=== PATIENT | male | born 1985 | race American Indian/Alaskan Native ===

== ENCOUNTER 2019-10-16 22:26 | Inpatient (IN) | payer SELFPAY ==
[2019-10-16] MEDS ORDERED: IPRATROPIUM 0.02% NEBU 2.5 ML IH ONE ×4 (22:57→23:04)
[2019-10-16] MEDS ORDERED: ALBUTEROL 2.5 MG/3 ML NEBU IH ONE ×4 (22:57→23:04)
[2019-10-16] MEDS ORDERED: dexAMETHasone 20 MG/5 ML VIAL IV ONE (23:04)
[2019-10-16] MEDS ORDERED: MAGNESIUM SULFATE 1 GM in SODIUM CHLORIDE 0.9% 50 ML IV ONE (23:05)
[2019-10-16] MEDS ORDERED: SODIUM CHLORIDE 0.9% 1000 ML 1,000 ML IV ONE (23:05)
[2019-10-16] MEDS: cefTRIAXone/NS 2 GM/100 ML 2 GM/100 ML BAG IV SCH (23:22)
[2019-10-16 23:45] LABS: Hematocrit 47.3 % (35.5-45.6); Hemoglobin 15.8 gm/dl (11.8-15.2); Mean Corpuscular HGB Conc 34 % (32-34); Mean Corpuscular Volume 83 fl (84-94); Red Blood Count 5.68 M/mm3 (3.65-5.03); Red Cell Distribution Width 15.9 % (13.2-15.2)
--- NOTE | 2019-10-16 23:45 | XRay Report ---
CHEST 1 VIEW INDICATION: asthma with fever COMPARISON: none FINDINGS: SUPPORT DEVICES: None. HEART / MEDIASTINUM: No significant abnormality. LUNGS / PLEURA: No significant pulmonary or pleural abnormality. No pneumothorax. ADDITIONAL FINDINGS: IMPRESSION: 1. No acute cardiopulmonary disease Signer Name: Gurdeep Zuñiga MD Signed: 10/16/2019 11:40 PM Workstation Name: [id number]
[2019-10-16 23:49] LABS: Platelet Count 178 K/mm3 (140-440)
[2019-10-17 00:06] LABS: Alanine Aminotransferase 40 units/L (7-56); Albumin 4.1 g/dL (3.9-5); BUN/Creatinine Ratio 12; Blood Urea Nitrogen 11 mg/dL (9-20); Calcium 9.5 mg/dL (8.4-10.2); Hemolysis Index 5
--- NOTE | 2019-10-17 00:22 | Emergency Department Report ---
ED Asthma HPI - General Chief Complaint: Adult Asthma Stated Complaint: ASTHMA Time Seen by Provider: 10/16/19 23:04 Source: patient, EMS Mode of arrival: Ambulatory Limitations: No Limitations - History of Present Illness Initial Comments: Patient is a 34-year-old F Montene[place] male with a past medical history of asthma who does not have a inhaler at this time who is had a cough congestion wheezing with shortness of breath for the past 2 to 3 days. Patient denies fever at home but did have a simple slight temperature here. Cough is nonproductive. Patient states is very short of breath with minimal exertion. He denies nausea vomiting diarrhea. - Related Data Allergies Allergy/AdvReac Type Severity Reaction Status Date / Time No Known Drug Allergies Allergy Unknown Verified 10/16/19 23:13 ED Review of Systems ROS: Stated complaint: ASTHMA Other details as noted in HPI Comment: All other systems reviewed and negative ED Past Medical Hx - Past Medical History Previous Medical History?: Yes Hx Hypertension: Yes Hx Asthma: Yes Additional medical history: Bronchitis - Surgical History Past Surgical History?: No - Social History Smoking Status: Current Every Day Smoker Substance Use Type: Marijuana ED Physical Exam - General Limitations: No Limitations General appearance: alert, in no apparent distress - Head Head exam: Present: atraumatic, normocephalic - Eye Eye exam: Present: normal appearance - ENT ENT exam: Present: mucous membranes moist - Neck Neck exam: Present: normal inspection - Respiratory Respiratory exam: Present: respiratory distress, wheezes, accessory muscle use. Absent: normal lung sounds bilaterally, rales, rhonchi - Cardiovascular Cardiovascular Exam: Present: normal rhythm, tachycardia. Absent: systolic murmur, diastolic murmur, rubs, gallop - GI/Abdominal GI/Abdominal exam: Present: soft, normal bowel sounds. Absent: distended, tenderness, guarding, rebound - Rectal Rectal exam: Present: deferred - Extremities Exam Extremities exam: Present: normal inspection - Back Exam Back exam: Present: normal inspection - Neurological Exam Neurological exam: Present: alert, oriented X3 - Psychiatric Psychiatric exam: Present: normal affect, normal mood - Skin Skin exam: Present: warm, dry, intact, normal color. Absent: rash ED Course Vital Signs 10/16/19 10/16/19 10/16/19 22:53 23:08 23:30 Temperature 100.3 F H 99.3 F Pulse Rate 114 H 106 H Pulse Rate [ 112 H Bilateral Throughout] Respiratory 26 H 21 Rate Respiratory 17 Rate [Bilateral Throughout] Blood Pressure 139/90 Blood Pressure 132/85 [Left] O2 Sat by Pulse 96 97 Oximetry ED Medical Decision Making - Lab Data Result diagrams: 10/16/19 23:25 10/16/19 23:25 Lab Results 10/16/19 10/16/19 10/16/19 Range/Units 23:25 23:25 23:25 WBC 20.3 H (4.5-11.0) K/mm3 RBC 5.68 H (3.65-5.03) M/mm3 Hgb 15.8 H (11.8-15.2) gm/dl Hct 47.3 H (35.5-45.6) % MCV 83 L (84-94) fl MCH 28 (28-32) pg MCHC 34 (32-34) % RDW 15.9 H (13.2-15.2) % Plt Count 178 (140-440) K/mm3 Sodium 135 L (137-145) mmol/L Potassium 3.7 (3.6-5.0) mmol/L Chloride 99.7 (98-107) mmol/L Carbon Dioxide 21 L (22-30) mmol/L Anion Gap 18 mmol/L BUN 11 (9-20) mg/dL Creatinine 0.9 (0.8-1.3) mg/dL Estimated GFR > 60 ml/min BUN/Creatinine Ratio 12 % Glucose 106 H (75-100) mg/dL Lactic Acid 1.30 (0.7-2.0) mmol/L Calcium 9.5 (8.4-10.2) mg/dL Total Bilirubin 0.40 (0.1-1.2) mg/dL AST 26 (5-40) units/L ALT 40 (7-56) units/L Alkaline Phosphatase 96 (35-129) units/L Total Protein 8.5 H (6.3-8.2) g/dL Albumin 4.1 (3.9-5) g/dL Albumin/Globulin Ratio 0.9 % - Radiology Data Ordering Physician: BERNARDO WOODY MD Date of Service: 10/16/19 Procedure(s): XR chest 1V ap Accession Number(s): [id number] cc: BERNARDO WOODY MD Fluoro Time In Minutes: CHEST 1 VIEW INDICATION: asthma with fever COMPARISON: none FINDINGS: SUPPORT DEVICES: None. HEART / MEDIASTINUM: No significant abnormality. LUNGS / PLEURA: No significant pulmonary or pleural abnormality. No pneumotho rax. ADDITIONAL FINDINGS: IMPRESSION: 1. No acute cardiopulmonary disease Signer Name: Gurdeep Zuñiga MD Signed: 10/16/2019 11:40 PM Workstation Name: [id number] - Medical Decision Making After hour-long neb treatment the patient is continued to have loud wheezing. Patient will be admitted to the hospitalist service for further evaluation. Critical Care Time: Yes Critical care attestation.: If time is entered above; I have spent that time in minutes in the direct care of this critically ill patient, excluding procedure time. ED Disposition Clinical Impression: Asthma exacerbation, Acute respiratory distress, Suspected 2019 novel coronavirus infection Disposition: OP ADMIT IP TO THIS HOSP Is pt being admited?: Yes Does the pt Need Aspirin: No Condition: Stable Time of Disposition: 00:24
[2019-10-17] MEDS ORDERED: ACETAMINOPHEN 325 MG TAB PO PRN (00:43)
[2019-10-17] MEDS ORDERED: ONDANSETRON 4 MG/2 ML INJ IV PRN (00:43)
[2019-10-17] MEDS ORDERED: MAGNESIUM HYDROXIDE (MOM) ORAL LIQD UDC PO PRN (00:43)
[2019-10-17] MEDS ORDERED: MORPHINE 2 MG/1 ML INJ IV PRN (00:43)
--- NOTE | 2019-10-17 00:54 | History and Physical Report ---
History of Present Illness Date of examination: 10/17/19 Date of admission: 10/17/2019 Chief complaint: Cough Congestion Wheezing History of present illness: Patient is a 34-year-old -[place] male with known history of asthma presenting to the emergency room today complaining of cough,congestion, wheezing and shortness of breath which has been ongoing for the past 2 to 3 days. He denies any fever or chills at home however he has been having a nonproductive cough. He also indicates that he gets short of breath on minimal exertion. He denies any nausea or vomiting, no abdominal pain, no chest pain. Patient denies any sick contacts and no recent travel. No contact with anyone with COVID-19 Upon arrival in the emergency room he was found to be in respiratory distress, wheezing and had a fever of about 103 F. Work-up reveals leukocytosis of about 20,000, chest x-ray was unremarkable. Patient received nebulizer treatments and IV steroids. In view of the fever, patient is also being ruled out for COVID-19. He is therefore being placed on isolation precautions. Past History Past Medical History: other (Asthma) Past Surgical History: No surgical history Social history: smoking (Current daily smoker- 1 pack per day.), other (Uses Marijuana) Family history: no significant family history Medications and Allergies Allergies Allergy/AdvReac Type Severity Reaction Status Date / Time No Known Drug Allergies Allergy Unknown Verified 10/16/19 23:13 Active Meds: Active Medications Acetaminophen (Tylenol) 650 mg PO Q4H PRN PRN Reason: Pain MILD(1-3)/Fever >100.5/HERRERA Ceftriaxone Sodium (Rocephin/Ns 2 Gm/100 Ml) 2 gm in 100 mls @ 200 mls/hr IV Q24HR JOEL; Protocol Last Admin: 10/16/19 23:22 Dose: 200 mls/hr Documented by: Ondansetron HCl (Zofran) 4 mg IV Q8H PRN PRN Reason: Nausea And Vomiting Sodium Chloride (Sodium Chloride Flush Syringe 10 Ml) 10 ml IV BID JOEL Sodium Chloride (Sodium Chloride Flush Syringe 10 Ml) 10 ml IV PRN PRN PRN Reason: LINE FLUSH Review of Systems Constitutional: no fever, no chills Ears, nose, mouth and throat: no nasal congestion, no sore throat Cardiovascular: no chest pain, no palpitations Respiratory: cough, shortness of breath, congestion, wheezing Gastrointestinal: no abdominal pain, no nausea, no vomiting, no diarrhea Genitourinary Male: no dysuria, no hematuria, no flank pain Musculoskeletal: no neck pain, no low back pain Integumentary: no rash, no pruritis Neurological: no headaches, no confusion Psychiatric: no anxiety, no depression Exam - Constitutional Vitals: Temp Pulse Resp BP Pulse Ox 99.3 F 100 H 25 H 153/80 99 10/16/19 23:30 10/17/19 00:30 10/17/19 00:30 10/17/19 00:30 10/17/19 00:30 General appearance: Present: mild distress, well-nourished, obese - EENT Eyes: Present: PERRL, EOM intact. Absent: scleral icterus ENT: hearing intact, clear oral mucosa, dentition normal - Neck Neck: Present: supple, normal ROM - Respiratory Respiratory effort: normal Respiratory: bilateral: wheezing - Cardiovascular Rhythm: regular Heart Sounds: Present: S1 & S2. Absent: gallop, systolic murmur, diastolic murmur, rub - Extremities Extremities: no ischemia, pulses intact, pulses symmetrical, No edema, normal temperature, normal color, Full ROM Peripheral Pulses: within normal limits - Abdominal General gastrointestinal: Present: soft, non-tender, non-distended, normal bowel sounds. Absent: mass - Integumentary Integumentary: Present: clear, warm, dry. Absent: rash - Musculoskeletal Musculoskeletal: strength equal bilaterally - Psychiatric Psychiatric: appropriate mood/affect, intact judgment & insight, memory intact, cooperative - Neurologic Neurologic: CNII-XII intact, no focal deficits, moves all extremities Results - Labs CBC & Chem 7: 10/16/19 23:25 10/16/19 23:25 Labs: Abnormal lab results 10/16/19 10/16/19 Range/Units 23:25 23:25 WBC 20.3 H (4.5-11.0) K/mm3 RBC 5.68 H (3.65-5.03) M/mm3 Hgb 15.8 H (11.8-15.2) gm/dl Hct 47.3 H (35.5-45.6) % MCV 83 L (84-94) fl RDW 15.9 H (13.2-15.2) % Sodium 135 L (137-145) mmol/L Carbon Dioxide 21 L (22-30) mmol/L Glucose 106 H (75-100) mg/dL Total Protein 8.5 H (6.3-8.2) g/dL Assessment and Plan - Patient Problems (1) Asthma exacerbation Current Visit: Yes Status: Acute Plan to address problem: Patient placed on nebulizing treatments and IV steroids. We will also keep oxygen saturation greater or equal to 94%. (2) Acute respiratory distress Current Visit: Yes Status: Acute Plan to address problem: Possibly secondary to the asthma exacerbation. We will continue nebulizing treatments as above. We will monitor vital signs closely (3) Suspected 2019 novel coronavirus infection Current Visit: Yes Status: Acute Plan to address problem: Patient placed on isolation precautions and will also place consult to infectious disease for evaluation and recommendation. Will await COVID-19 testing. (4) DVT prophylaxis Current Visit: Yes Status: Acute Plan to address problem: Patient placed on subcutaneous Lovenox. (5) Full code status Current Visit: Yes Status: Acute
[2019-10-17 02:57] LABS: C-Reactive Protein 6.3 mg/dL (0.00-1.30)
[2019-10-17 04:36] LABS: Basophils % (Manual) 0 % (0.0-1.8); Total Cells Counted 100
[2019-10-17 04:37] LABS: Platelet Clumps Few; Platelet Estimate Appears Decreased
[2019-10-17] MEDS: methylPREDNISolone Sod Succinate 40 MG/1 ML INJ IV SCH ×3 (06:08→21:10)
[2019-10-17] MEDS: IPRATROPIUM/ALBUTEROL SULFATE 3 ML AMPUL.NEB IH SCH ×4 (07:42→19:55)
--- NOTE | 2019-10-17 07:47 | Progress Note ---
<MANSI PICKARD - Last Filed: 10/17/19 07:49> Assessment and Plan Assessment and Plan - Patient Problems (1) Asthma exacerbation Current Visit: Yes Status: Acute Plan to address problem: Continue nebulizing treatments and IV steroids. Monitor 02 sat and keep oxygen saturation greater or equal to 94%. (2) Acute respiratory distress Current Visit: Yes Status: Acute Plan to address problem: Possibly secondary to the asthma exacerbation. We will continue nebulizing treatments as above. We will monitor vital signs closely (3) Suspected 2019 novel coronavirus infection Current Visit: Yes Status: Acute Plan to address problem: Patient placed on isolation precautions and will also place consult to infectious disease for evaluation and recommendation. Elevated inflammatory makers-trend awaiting COVID-19 test result (4) DVT prophylaxis Current Visit: Yes Status: Acute Plan to address problem: Patient placed on subcutaneous Lovenox. (5) Full code status Current Visit: Yes Status: Acute - Patient Problems (1) Leucocytosis Current Visit: Yes Status: Acute Plan to address problem: ? cause covid viral infection/asthma exacerbation with upper respiratory infection Continue empiric IV abx Blood culture and covid test-result pending Chest x-ray was done -no acute finding Elevated inflammatory maker-monitor Subjective Date of service: 10/17/19 Principal diagnosis: Asthma exacerbaton Interval history: Patient seen at bedside in his room. Reviewed lab, mar, and v/s Objective - Constitutional Vitals: Vital Signs - 12hr 10/16/19 10/16/19 10/16/19 22:53 23:08 23:30 Temperature 100.3 F H 99.3 F Pulse Rate 114 H 106 H Pulse Rate [ 112 H Bilateral Throughout] Respiratory 26 H 21 Rate Respiratory 17 Rate [Bilateral Throughout] Blood Pressure 139/90 Blood Pressure 132/85 [Left] O2 Sat by Pulse 96 97 Oximetry 10/16/19 10/17/19 10/17/19 23:45 00:00 00:15 Temperature Pulse Rate 103 H 106 H 105 H Pulse Rate [ Bilateral Throughout] Respiratory 21 20 28 H Rate Respiratory Rate [Bilateral Throughout] Blood Pressure 131/85 147/87 146/90 Blood Pressure [Left] O2 Sat by Pulse 99 99 97 Oximetry 10/17/19 10/17/19 10/17/19 00:30 00:46 01:16 Temperature 99.9 F H Pulse Rate 100 H 111 H 97 H Pulse Rate [ Bilateral Throughout] Respiratory 25 H 23 24 Rate Respiratory Rate [Bilateral Throughout] Blood Pressure 153/80 144/80 150/83 Blood Pressure [Left] O2 Sat by Pulse 99 96 97 Oximetry 10/17/19 10/17/19 10/17/19 01:45 02:00 02:45 Temperature Pulse Rate Pulse Rate [ Bilateral Throughout] Respiratory 21 21 19 Rate Respiratory Rate [Bilateral Throughout] Blood Pressure Blood Pressure [Left] O2 Sat by Pulse 97 Oximetry 10/17/19 04:05 Temperature 98.6 F Pulse Rate Pulse Rate [ Bilateral Throughout] Respiratory 24 Rate Respiratory Rate [Bilateral Throughout] Blood Pressure 142/87 Blood Pressure [Left] O2 Sat by Pulse Oximetry General appearance: Present: mild distress - EENT Eyes: PERRL, EOM intact ENT: hearing intact, clear oral mucosa Ears: bilateral: normal - Neck Neck: supple, normal ROM - Respiratory Respiratory effort: other (Wheezing and mild SOB) Respiratory: bilateral: wheezing - Breasts Breasts: normal - Cardiovascular Heart rate: 97 Rhythm: regular Heart Sounds: Present: S1 & S2. Absent: gallop, rub Extremities: pulses intact, No edema, normal color, Full ROM - Gastrointestinal General gastrointestinal: Present: soft, non-tender, non-distended, normal bowel sounds - Genitourinary Male genitourinary: normal - Integumentary Integumentary: clear, warm, dry - Musculoskeletal Musculoskeletal: 1, strength equal bilaterally - Neurologic Neurologic: moves all extremities - Psychiatric Psychiatric: memory intact, appropriate mood/affect, intact judgment & insight - Allied health notes Allied health notes reviewed: nursing - Labs CBC & Chem 7: 10/16/19 23:25 10/17/19 00:29 Labs: Abnormal lab results 10/16/19 10/16/19 10/17/19 Range/Units 23:25 23:25 00:29 WBC 20.3 H (4.5-11.0) K/mm3 RBC 5.68 H (3.65-5.03) M/mm3 Hgb 15.8 H (11.8-15.2) gm/dl Hct 47.3 H (35.5-45.6) % MCV 83 L (84-94) fl RDW 15.9 H (13.2-15.2) % Seg Neuts % (Manual) 84.0 H (40.0-70.0) % Lymphocytes % (Manual) 9.0 L (13.4-35.0) % Seg Neutrophils # Man 17.1 H (1.8-7.7) K/mm3 Monocytes # (Manual) 1.2 H (0.0-0.8) K/mm3 Sodium 135 L (137-145) mmol/L Carbon Dioxide 21 L (22-30) mmol/L Glucose 106 H 105 H (75-100) mg/dL Lactate Dehydrogenase 209 H (91-180) units/L C-Reactive Protein 6.30 H (0.00-1.30) mg/dL Total Protein 8.5 H (6.3-8.2) g/dL <LUKE GARCIA - Last Filed: 10/17/19 14:19> Assessment and Plan I agree with assessment and plan as noted above. Continue solumedrol 40 q8h for now Bronchodilators COVID 19 test pending Needs pulmonology follow up Objective - Constitutional Vitals: Vital Signs - 12hr 10/17/19 10/17/19 10/17/19 02:45 04:05 07:40 Temperature 98.6 F Pulse Rate Pulse Rate [ 96 H Bilateral Throughout] Respiratory 19 24 Rate Respiratory 24 Rate [Bilateral Throughout] Blood Pressure 142/87 O2 Sat by Pulse Oximetry 10/17/19 10/17/19 10/17/19 08:48 11:40 12:31 Temperature 98.3 F Pulse Rate 94 H Pulse Rate [ 96 H Bilateral Throughout] Respiratory 20 Rate Respiratory 22 Rate [Bilateral Throughout] Blood Pressure 154/90 O2 Sat by Pulse 96 96 Oximetry - Labs CBC & Chem 7: 10/16/19 23:25 10/17/19 00:29 Labs: Abnormal lab results 10/16/19 10/16/19 10/17/19 Range/Units 23:25 23:25 00:29 WBC 20.3 H (4.5-11.0) K/mm3 RBC 5.68 H (3.65-5.03) M/mm3 Hgb 15.8 H (11.8-15.2) gm/dl Hct 47.3 H (35.5-45.6) % MCV 83 L (84-94) fl RDW 15.9 H (13.2-15.2) % Seg Neuts % (Manual) 84.0 H (40.0-70.0) % Lymphocytes % (Manual) 9.0 L (13.4-35.0) % Seg Neutrophils # Man 17.1 H (1.8-7.7) K/mm3 Monocytes # (Manual) 1.2 H (0.0-0.8) K/mm3 Sodium 135 L (137-145) mmol/L Carbon Dioxide 21 L (22-30) mmol/L Glucose 106 H 105 H (75-100) mg/dL Lactate Dehydrogenase 209 H (91-180) units/L C-Reactive Protein 6.30 H (0.00-1.30) mg/dL Total Protein 8.5 H (6.3-8.2) g/dL
[2019-10-17] MEDS: cefTRIAXone/NS 2 GM/100 ML 2 GM/100 ML BAG IV SCH (09:40)
[2019-10-17] MEDS ORDERED: AZITHROMYCIN 500 MG in SODIUM CHLORIDE 0.9% 250ML 250 ML IV SCH (10:00)
[2019-10-17] MEDS: ENOXAPARIN 40 MG/0.4 ML INJ SUB-Q SCH (21:09)
[2019-10-18] MEDS: methylPREDNISolone Sod Succinate 40 MG/1 ML INJ IV SCH ×3 (06:38→21:12)
[2019-10-18 07:42] LABS: BUN/Creatinine Ratio 24; Blood Urea Nitrogen 19 mg/dL (9-20); Calcium 9.6 mg/dL (8.4-10.2); Hemolysis Index 4
[2019-10-18 07:43] LABS: INR 1.02 (0.87-1.13)
[2019-10-18 07:45] LABS: C-Reactive Protein 4.5 mg/dL (0.00-1.30)
[2019-10-18] MEDS: IPRATROPIUM/ALBUTEROL SULFATE 3 ML AMPUL.NEB IH SCH ×4 (07:49→20:22)
[2019-10-18 08:59] LABS: Hematocrit 46.8 % (35.5-45.6); Hemoglobin 15.5 gm/dl (11.8-15.2); Mean Corpuscular HGB Conc 33 % (32-34); Mean Corpuscular Volume 86 fl (84-94); Red Blood Count 5.47 M/mm3 (3.65-5.03); Red Cell Distribution Width 16.2 % (13.2-15.2)
[2019-10-18 09:01] LABS: Platelet Count 204 K/mm3 (140-440)
[2019-10-18 09:52] LABS: Band Neutrophils # (Manual) 0.3 K/mm3; Basophils % (Manual) 0 % (0.0-1.8); Eosinophils % (Manual) 0 % (0.0-4.3); Total Cells Counted 100
[2019-10-18] MEDS: AZITHROMYCIN 250 MG TAB PO SCH (09:53)
[2019-10-18] MEDS: cefTRIAXone/NS 2 GM/100 ML 2 GM/100 ML BAG IV SCH (09:53)
[2019-10-18 09:54] LABS: Giant Platelets Few; Platelet Clumps 1+; RBC Morphology Normal
[2019-10-18 09:55] LABS: Platelet Estimate Appears Increased
--- NOTE | 2019-10-18 11:02 | Progress Note ---
<PRIMOMARUMILLYWARRENMANSI - Last Filed: 10/18/19 10:57> Assessment and Plan Assessment and Plan - Patient Problems (1) Asthma exacerbation-improving Current Visit: Yes Status: Acute Plan to address problem: Continue nebulizing treatments and IV steroids. Monitor 02 sat and keep oxygen saturation greater or equal to 94%. On oxygen at 2 liters N/C (2) Acute respiratory distress-improving Current Visit: Yes Status: Acute Plan to address problem: Possibly secondary to the asthma exacerbation. We will continue nebulizing treatments as above. Picking Table Worker consulted-f/u with recommendation (3) Suspected 2019 novel coronavirus infection-negative Current Visit: Yes Status: Acute Plan to address problem: covid test negative (4) DVT prophylaxis Current Visit: Yes Status: Acute Plan to address problem: Patient placed on subcutaneous Lovenox. (5) Full code status Current Visit: Yes Status: Acute - Patient Problems (1) Leucocytosis Current Visit: Yes Status: Acute Plan to address problem: ? cause covid viral infection/asthma exacerbation with upper respiratory infection Continue empiric IV abx Blood culture and covid test-negative Chest x-ray was done -no acute finding procalcitonin-negative ID consulted -f/u with recommendation (2) Tobacco abuse Current Visit: Yes Status: Acute Plan to address problem: Discussed tobacco use cessation cardiovascular and neoplasm syndrom of tobacco use explained to patient patient voiced understanding Subjective Date of service: 10/18/19 Principal diagnosis: Asthma exacerbaton Interval history: Patient seen at bedside in his room. Reviewed lab, mar, and v/s patient wheezing on auscultation he denies chest pain, n/v, on oxygen at 2 liters N/C But reports that is feeling better. Elevated leucocytosis to 34 Chest x-ray shows no acute finding Covid test negative, procalciton negative Consulted plumber's helper for acute asthma exacerbation ID also consulted -pts elevated wBC Objective - Constitutional Vitals: Vital Signs - 12hr 10/18/19 10/18/19 02:00 05:38 Temperature 98.3 F Pulse Rate 79 Respiratory 20 22 Rate Blood Pressure 138/77 O2 Sat by Pulse 95 94 Oximetry General appearance: Present: mild distress (pt on oxygen at 2 N/C), well- nourished - EENT Eyes: PERRL, EOM intact ENT: hearing intact, clear oral mucosa Ears: bilateral: normal - Neck Neck: supple, normal ROM - Respiratory Respiratory effort: other (Wheezing on auscultation-mildly improving) Respiratory: bilateral: wheezing - Breasts Breasts: normal - Cardiovascular Heart rate: 79 Rhythm: regular Heart Sounds: Present: S1 & S2. Absent: gallop, rub Extremities: pulses intact, No edema, normal color, Full ROM - Gastrointestinal General gastrointestinal: Present: soft, non-tender, non-distended, normal bowel sounds - Genitourinary Male genitourinary: normal - Integumentary Integumentary: clear, warm, dry - Musculoskeletal Musculoskeletal: 1, strength equal bilaterally - Neurologic Neurologic: moves all extremities - Psychiatric Psychiatric: memory intact, appropriate mood/affect, intact judgment & insight - Labs CBC & Chem 7: 10/18/19 06:56 10/18/19 06:56 Labs: Abnormal lab results 10/18/19 10/18/19 10/18/19 Range/Units 06:56 06:56 06:56 WBC 32.4 H (4.5-11.0) K/mm3 RBC 5.47 H (3.65-5.03) M/mm3 Hgb 15.5 H (11.8-15.2) gm/dl Hct 46.8 H (35.5-45.6) % RDW 16.2 H (13.2-15.2) % Seg Neuts % (Manual) 84.0 H (40.0-70.0) % Lymphocytes % (Manual) 10.0 L (13.4-35.0) % Seg Neutrophils # Man 27.2 H (1.8-7.7) K/mm3 Monocytes # (Manual) 1.6 H (0.0-0.8) K/mm3 Glucose 111 H (75-100) mg/dL Lactate Dehydrogenase 221 H (91-180) units/L C-Reactive Protein 4.50 H (0.00-1.30) mg/dL <ANSHU MONTES - Last Filed: 10/19/19 07:39> Assessment and Plan I saw and evaluated the patient. I agree with the findings and the plan of care as documented in the Nurse Practitioner's~note, with the following corrections and additions. Objective - Constitutional Vitals: Vital Signs - 12hr 10/18/19 10/18/19 10/18/19 20:15 21:06 22:08 Temperature 97.5 F L Pulse Rate 89 Pulse Rate [ 98 H Bilateral Throughout] Respiratory 20 Rate Respiratory 18 Rate [Bilateral Throughout] Blood Pressure 136/88 O2 Sat by Pulse 98 97 Oximetry 10/18/19 10/19/19 10/19/19 22:51 01:45 05:58 Temperature 97.8 F Pulse Rate 95 H Pulse Rate [ 84 Bilateral Throughout] Respiratory 20 20 Rate Respiratory 18 Rate [Bilateral Throughout] Blood Pressure 135/80 O2 Sat by Pulse 95 93 Oximetry - Labs CBC & Chem 7: 10/19/19 05:03 10/18/19 06:56 Labs: Abnormal lab results 10/18/19 10/18/19 10/18/19 Range/Units 06:56 06:56 06:56 WBC 32.4 H (4.5-11.0) K/mm3 RBC 5.47 H (3.65-5.03) M/mm3 Hgb 15.5 H (11.8-15.2) gm/dl Hct 46.8 H (35.5-45.6) % RDW 16.2 H (13.2-15.2) % Seg Neuts % (Manual) 84.0 H (40.0-70.0) % Lymphocytes % (Manual) 10.0 L (13.4-35.0) % Seg Neutrophils # Man 27.2 H (1.8-7.7) K/mm3 Monocytes # (Manual) 1.6 H (0.0-0.8) K/mm3 Glucose 111 H (75-100) mg/dL Lactate Dehydrogenase 221 H (91-180) units/L C-Reactive Protein 4.50 H (0.00-1.30) mg/dL 10/19/19 Range/Units 05:03 WBC 24.8 H (4.5-11.0) K/mm3 RBC 5.50 H (3.65-5.03) M/mm3 Hgb 15.4 H (11.8-15.2) gm/dl Hct 46.9 H (35.5-45.6) % RDW 16.4 H (13.2-15.2) % Seg Neuts % (Manual) (40.0-70.0) % Lymphocytes % (Manual) (13.4-35.0) % Seg Neutrophils # Man (1.8-7.7) K/mm3 Monocytes # (Manual) (0.0-0.8) K/mm3 Glucose (75-100) mg/dL Lactate Dehydrogenase (91-180) units/L C-Reactive Protein (0.00-1.30) mg/dL
[2019-10-18] MEDS: guaiFENesin DM 200/20 MG ORAL LIQD 10 ML PO PRN ×3 (12:56→19:49)
--- NOTE | 2019-10-18 16:21 | Consultation ---
History of Present Illness Consult date: 10/18/19 Past History Past Medical History: other (Asthma) Past Surgical History: No surgical history Social history: smoking (Current daily smoker- 1 pack per day.), other (Uses Marijuana) Family history: no significant family history Medications and Allergies Allergies Allergy/AdvReac Type Severity Reaction Status Date / Time No Known Drug Allergies Allergy Unknown Verified 10/16/19 23:13 Home Medications Medication Instructions Recorded Confirmed Last Taken Type Albuterol Mdi (or & Nicu Only) 2 puff IH QID PRN #8.5 gram 10/18/19 Unknown Rx [ProAir HFA Inhaler] Azithromycin [Zithromax TAB] 500 mg PO QDAY #6 tablet 10/18/19 Unknown Rx Prednisone [predniSONE 5 mg (6-Day 5 mg PO .TAPER #1 tab.ds.pk 10/18/19 Unknown Rx Pack, 21 Tabs)] Active Meds: Active Medications Acetaminophen (Tylenol) 650 mg PO Q4H PRN PRN Reason: Pain MILD(1-3)/Fever >100.5/HERRERA Last Admin: 10/17/19 01:45 Dose: 650 mg Documented by: Albuterol/Ipratropium (Duoneb *Not For Prn Use*) 1 ampul IH Q6HRT [facility] Azithromycin (Zithromax) 500 mg PO QDAY [facility] Stop: 10/21/19 10:01 Last Admin: 10/18/19 09:53 Dose: 500 mg Documented by: Enoxaparin Sodium (Enoxaparin) 40 mg SUB-Q QDAY@2200 JOEL Last Admin: 10/17/19 21:09 Dose: 40 mg Documented by: Guaifenesin (Guaifenesin Dm Syrup) 10 ml PO Q4H PRN PRN Reason: Cough Last Admin: 10/18/19 15:45 Dose: 10 ml Documented by: Ceftriaxone Sodium (Rocephin/Ns 2 Gm/100 Ml) 2 gm in 100 mls @ 200 mls/hr IV Q24HR [facility]; Protocol Last Infusion: 10/18/19 10:30 Dose: Infused Documented by: Magnesium Hydroxide (Milk Of Magnesia) 30 ml PO Q4H PRN PRN Reason: Constipation Methylprednisolone Sodium Succinate (Solu-Medrol) 40 mg IV Q8HR [facility] Last Admin: 09/06/20 14:09 Dose: 40 mg Documented by: Morphine Sulfate (Morphine) 2 mg IV Q4H PRN PRN Reason: Pain, Moderate (4-6) Ondansetron HCl (Zofran) 4 mg IV Q8H PRN PRN Reason: Nausea And Vomiting Sodium Chloride (Sodium Chloride Flush Syringe 10 Ml) 10 ml IV BID JOEL Last Admin: 10/18/19 10:30 Dose: 10 ml Documented by: Sodium Chloride (Sodium Chloride Flush Syringe 10 Ml) 10 ml IV PRN PRN PRN Reason: LINE FLUSH Review of Systems All systems: negative Physical Examination Vital signs: Vital Signs Temp Pulse Resp BP Pulse Ox 100.3 F H 114 H 26 H 139/90 96 10/16/19 22:53 10/16/19 22:53 10/16/19 22:53 10/16/19 22:53 10/16/19 22:53 Results - Laboratory Findings CBC and BMP: 10/18/19 06:56 10/18/19 06:56 PT/INR, D-dimer PT 13.6 Sec. (12.2-14.9) 10/18/19 06:56 INR 1.02 (0.87-1.13) 10/18/19 06:56 D-Dimer < 135.00 ng/mlDDU (0-234) 10/17/19 08:53 Abnormal lab findings: Abnormal Labs 10/16/19 10/16/19 10/17/19 23:25 23:25 00:29 WBC 20.3 H RBC 5.68 H Hgb 15.8 H Hct 47.3 H MCV 83 L RDW 15.9 H Seg Neuts % (Manual) 84.0 H Lymphocytes % (Manual) 9.0 L Seg Neutrophils # Man 17.1 H Monocytes # (Manual) 1.2 H Sodium 135 L Carbon Dioxide 21 L Glucose 106 H 105 H Lactate Dehydrogenase 209 H C-Reactive Protein 6.30 H Total Protein 8.5 H 10/18/19 10/18/19 10/18/19 06:56 06:56 06:56 WBC 32.4 H RBC 5.47 H Hgb 15.5 H Hct 46.8 H MCV RDW 16.2 H Seg Neuts % (Manual) 84.0 H Lymphocytes % (Manual) 10.0 L Seg Neutrophils # Man 27.2 H Monocytes # (Manual) 1.6 H Sodium Carbon Dioxide Glucose 111 H Lactate Dehydrogenase 221 H C-Reactive Protein 4.50 H Total Protein - Diagnostic Findings Chest x-ray: report reviewed, image reviewed Additional studies: CHEST 1 VIEW 10/16/19 INDICATION: asthma with fever COMPARISON: none FINDINGS: SUPPORT DEVICES: None. HEART / MEDIASTINUM: No significant abnormality. LUNGS / PLEURA: No significant pulmonary or pleural abnormality. No pneumothorax. ADDITIONAL FINDINGS: IMPRESSION: 1. No acute cardiopulmonary disease Assessment and Plan - Patient Problems (1) Acute respiratory distress Current Visit: Yes Status: Acute (2) Asthma exacerbation Current Visit: Yes Status: Acute (3) Suspected 2019 novel coronavirus infection Current Visit: Yes Status: Acute (4) Tobacco abuse Current Visit: Yes Status: Acute
--- NOTE | 2019-10-18 17:14 | Consultation ---
History of Present Illness Consult date: 10/18/19 Reason for consult: cough, asthma History of present illness: Patient is a 34-year-old -[place] male Morbidly Obese with known history of asthma presenting to the emergency room today complaining of cough,congestion, wheezing and shortness of breath which has been ongoing for the past 2 to 3 days. He denies any fever or chills at home however he has been having a nonproductive cough. He also indicates that he gets short of breath on minimal exertion. He denies any nausea or vomiting, no abdominal pain, no chest pain. Patient denies any sick contacts and no recent travel. No contact with anyone with COVID-19 Upon arrival in the emergency room he was found to be in respiratory distress, wheezing and had a fever of about 103 F. Work-up reveals leukocytosis of about 20,000, chest x-ray was unremarkable. Patient received nebulizer treatments and IV steroids. Patient is on 2 litres o2. O2 saturation 95%. Patient afebrile. Has leukocytosis. Patient having cough. Patient says breathing better. Patient has history of smoking 1 pack x 20 years. Counselled to stop smoking. also smokes mariluna. Denies alcohol abuse. 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 No known drug allergies. Past History Past Medical History: other (Asthma) Past Surgical History: No surgical history Social history: smoking (Current daily smoker- 1 pack per day.), other (Uses Marijuana) Family history: no significant family history Medications and Allergies Allergies Allergy/AdvReac Type Severity Reaction Status Date / Time No Known Drug Allergies Allergy Unknown Verified 10/16/19 23:13 Home Medications Medication Instructions Recorded Confirmed Last Taken Type Albuterol Mdi (or & Nicu Only) 2 puff IH QID PRN #8.5 gram 10/18/19 Unknown Rx [ProAir HFA Inhaler] Azithromycin [Zithromax TAB] 500 mg PO QDAY #6 tablet 10/18/19 Unknown Rx Prednisone [predniSONE 5 mg (6-Day 5 mg PO .TAPER #1 tab.ds.pk 10/18/19 Unknown Rx Pack, 21 Tabs)] Active Meds: Active Medications Acetaminophen (Tylenol) 650 mg PO Q4H PRN PRN Reason: Pain MILD(1-3)/Fever >100.5/HERRERA Last Admin: 10/17/19 01:45 Dose: 650 mg Documented by: Albuterol/Ipratropium (Duoneb *Not For Prn Use*) 1 ampul IH Q6HRT [facility] Azithromycin (Zithromax) 500 mg PO QDAY [facility] Stop: 10/21/19 10:01 Last Admin: 10/18/19 09:53 Dose: 500 mg Documented by: Enoxaparin Sodium (Enoxaparin) 40 mg SUB-Q QDAY@2200 [facility] Last Admin: 10/17/19 21:09 Dose: 40 mg Documented by: Guaifenesin (Guaifenesin Dm Syrup) 10 ml PO Q4H PRN PRN Reason: Cough Last Admin: 10/18/19 15:45 Dose: 10 ml Documented by: Ceftriaxone Sodium (Rocephin/Ns 2 Gm/100 Ml) 2 gm in 100 mls @ 200 mls/hr IV Q24HR [facility]; Protocol Last Infusion: 10/18/19 10:30 Dose: Infused Documented by: Magnesium Hydroxide (Milk Of Magnesia) 30 ml PO Q4H PRN PRN Reason: Constipation Methylprednisolone Sodium Succinate (Solu-Medrol) 40 mg IV Q8HR [facility] Last Admin: 10/18/19 14:09 Dose: 40 mg Documented by: Morphine Sulfate (Morphine) 2 mg IV Q4H PRN PRN Reason: Pain, Moderate (4-6) Ondansetron HCl (Zofran) 4 mg IV Q8H PRN PRN Reason: Nausea And Vomiting Sodium Chloride (Sodium Chloride Flush Syringe 10 Ml) 10 ml IV BID [facility] Last Admin: 10/18/19 10:30 Dose: 10 ml Documented by: Sodium Chloride (Sodium Chloride Flush Syringe 10 Ml) 10 ml IV PRN PRN PRN Reason: LINE FLUSH Review of Systems All systems: negative Physical Examination Vital signs: Vital Signs Temp Pulse Resp BP Pulse Ox 100.3 F H 114 H 26 H 139/90 96 10/16/19 22:53 10/16/19 22:53 10/16/19 22:53 10/16/19 22:53 10/16/19 22:53 General appearance: no acute distress, alert, other (Morbidley Obese.) Eyes: non-icteric ENT: oropharynx moist Neck: supple Ascultation: Bilateral: rhonchi Cardiovascular: regular rate and rhythm Gastrointestinal: normoactive bowel sounds, soft, non-tender Integumentary: normal Extremities: no cyanosis, no edema Musculoskeletal: no deformities normal mental status, non-focal exam, pupils equal and round, CN II-XII normal anxious Results - Laboratory Findings CBC and BMP: 10/18/19 06:56 10/18/19 06:56 PT/INR, D-dimer PT 13.6 Sec. (12.2-14.9) 10/18/19 06:56 INR 1.02 (0.87-1.13) 10/18/19 06:56 D-Dimer < 135.00 ng/mlDDU (0-234) 10/17/19 08:53 Abnormal lab findings: Abnormal Labs 10/16/19 10/16/19 10/17/19 23:25 23:25 00:29 WBC 20.3 H RBC 5.68 H Hgb 15.8 H Hct 47.3 H MCV 83 L RDW 15.9 H Seg Neuts % (Manual) 84.0 H Lymphocytes % (Manual) 9.0 L Seg Neutrophils # Man 17.1 H Monocytes # (Manual) 1.2 H Sodium 135 L Carbon Dioxide 21 L Glucose 106 H 105 H Lactate Dehydrogenase 209 H C-Reactive Protein 6.30 H Total Protein 8.5 H 10/18/19 10/18/19 10/18/19 06:56 06:56 06:56 WBC 32.4 H RBC 5.47 H Hgb 15.5 H Hct 46.8 H MCV RDW 16.2 H Seg Neuts % (Manual) 84.0 H Lymphocytes % (Manual) 10.0 L Seg Neutrophils # Man 27.2 H Monocytes # (Manual) 1.6 H Sodium Carbon Dioxide Glucose 111 H Lactate Dehydrogenase 221 H C-Reactive Protein 4.50 H Total Protein - Diagnostic Findings Chest x-ray: report reviewed, image reviewed Additional studies: CHEST 1 VIEW 10/16/19 INDICATION: asthma with fever COMPARISON: none FINDINGS: SUPPORT DEVICES: None. HEART / MEDIASTINUM: No significant abnormality. LUNGS / PLEURA: No significant pulmonary or pleural abnormality. No pne umothorax. ADDITIONAL FINDINGS: IMPRESSION: 1. No acute cardiopulmonary disease Assessment and Plan Patient is a 34-year-old -[place] male Morbidly Obese with known history of asthma presenting to the emergency room today complaining of cough,congestion, wheezing and shortness of breath which has been ongoing for the past 2 to 3 days. He denies any fever or chills at home however he has been having a nonproductive cough. He also indicates that he gets short of breath on minimal exertion. He denies any nausea or vomiting, no abdominal pain, no chest pain. Patient denies any sick contacts and no recent travel. No contact with anyone with COVID-19 Upon arrival in the emergency room he was found to be in respiratory distress, wheezing and had a fever of about 103 F. Work-up reveals leukocytosis of about 20,000, chest x-ray was unremarkable. Patient received nebulizer treatments and IV steroids. Patient is on 2 litres o2. O2 saturation 95%. Patient afebrile. Has leukocytosis. Patient having cough. Patient says breathing better. Patient has history of smoking 1 pack x 20 years. Counselled to stop smoking. also smokes mariluna. Denies alcohol abuse. 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 No known drug allergies. - Patient Problems (1) Acute respiratory distress Current Visit: Yes Status: Acute Plan to address problem: Patient says breathing better now. O2 saturation 95% on 2 litres O2. (2) Asthma exacerbation Current Visit: Yes Status: Acute Plan to address problem: O2 2 litres via nasal canula. Albuterol/atrovent aerosol treatments q 6 hours. Continue I/V solumedrol Continue ceftrioxane and zithromax. Continue S/C Lovenox. ABGs on room air. (3) Suspected 2019 novel coronavirus infection Current Visit: Yes Status: Acute Plan to address problem: COVID 19 reported negative. (4) Tobacco abuse Current Visit: Yes Status: Acute Plan to address problem: Counseled to stop smoking. Counseled to stop smoking Noan
--- NOTE | 2019-10-18 17:28 | Progress Note ---
Subjective Date of service: 10/18/19 Principal diagnosis: Asthma exacerbaton Objective - Constitutional Vitals: Vital Signs Temp Pulse Resp BP Pulse Ox 97.8 F 97 H 20 148/79 95 10/18/19 16:07 10/18/19 16:07 10/18/19 16:07 10/18/19 16:07 10/18/19 16:07 Temperature -Last 24 Hours Temperature 97.8 F Temperature 97.7 F Temperature 98.3 F Temperature 98.2 F - Labs CBC & Chem 7: 10/18/19 06:56 10/18/19 06:56 Labs: Abnormal lab results 10/18/19 10/18/19 10/18/19 Range/Units 06:56 06:56 06:56 WBC 32.4 H (4.5-11.0) K/mm3 RBC 5.47 H (3.65-5.03) M/mm3 Hgb 15.5 H (11.8-15.2) gm/dl Hct 46.8 H (35.5-45.6) % RDW 16.2 H (13.2-15.2) % Seg Neuts % (Manual) 84.0 H (40.0-70.0) % Lymphocytes % (Manual) 10.0 L (13.4-35.0) % Seg Neutrophils # Man 27.2 H (1.8-7.7) K/mm3 Monocytes # (Manual) 1.6 H (0.0-0.8) K/mm3 Glucose 111 H (75-100) mg/dL Lactate Dehydrogenase 221 H (91-180) units/L C-Reactive Protein 4.50 H (0.00-1.30) mg/dL
--- NOTE | 2019-10-18 17:35 | Consultation ---
History of Present Illness - Reason for Consult Consult date: 10/18/19 - History of Present Illness 34-year-old man past medical history asthma admitted to the hospital complaining of cough, congestion, wheezing, shortness of breath. He notes symptoms began approximately 2 to 3 days prior to admission. He otherwise denies any fevers, sweats, chills. His symptoms are associated with a nonproductive cough. He otherwise denies any symptoms. He denies any recent contacts with anybody diag nosed with COVID-19. Afebrile with a white count of 32. COVID-19 testing negative. Currently on c eftriaxone, azithromycin, Solu-Medrol. Blood cultures currently pending. Procalcitonin is normal. On 2 L nasal cannula. Imaging personally reviewed: Chest x-ray: No acute abnormality. Review of Systems: Bold if positive, otherwise negative General: fevers, chills, rigors HEENT: visual disturbance, diplopia, eye pain Respiratory: cough, sputum, hemoptysis, shortness of breath Cardiovascular: chest pain, syncope Gastrointestinal: nausea, vomiting, diarrhea, abdominal pain Genitourinary: dysuria, hematuria, flank pain Musculoskeletal: neck pain, back pain, joint pain, edema Neurologic: headaches, seizures Hematologic: easy bruising or bleeding Endocrine: night sweats, acute weight loss Skin: rash, jaundice, redness Psychiatric: suicidal, homicidal ideation Past History Past Medical History: other (Asthma) Past Surgical History: No surgical history Social history: smoking (Current daily smoker- 1 pack per day.), other (Uses Marijuana) Family history: no significant family history Medications and Allergies Allergies Allergy/AdvReac Type Severity Reaction Status Date / Time No Known Drug Allergies Allergy Unknown Verified 10/16/19 23:13 Home Medications Medication Instructions Recorded Confirmed Last Taken Type Albuterol Mdi (or & Nicu Only) 2 puff IH QID PRN #8.5 gram 10/18/19 Unknown Rx [ProAir HFA Inhaler] Azithromycin [Zithromax TAB] 500 mg PO QDAY #6 tablet 10/18/19 Unknown Rx Prednisone [predniSONE 5 mg (6-Day 5 mg PO .TAPER #1 tab.ds.pk 10/18/19 Unknown Rx Pack, 21 Tabs)] Active Meds: Active Medications Acetaminophen (Tylenol) 650 mg PO Q4H PRN PRN Reason: Pain MILD(1-3)/Fever >100.5/HERRERA Last Admin: 10/17/19 01:45 Dose: 650 mg Documented by: Albuterol/Ipratropium (Duoneb *Not For Prn Use*) 1 ampul IH Q6HRT [facility] Azithromycin (Zithromax) 500 mg PO QDAY [facility] Stop: 10/21/19 10:01 Last Admin: 10/18/19 09:53 Dose: 500 mg Documented by: Enoxaparin Sodium (Enoxaparin) 40 mg SUB-Q QDAY@2200 [facility] Last Admin: 10/17/19 21:09 Dose: 40 mg Documented by: Guaifenesin (Guaifenesin Dm Syrup) 10 ml PO Q4H PRN PRN Reason: Cough Last Admin: 10/18/19 15:45 Dose: 10 ml Documented by: Ceftriaxone Sodium (Rocephin/Ns 2 Gm/100 Ml) 2 gm in 100 mls @ 200 mls/hr IV Q24HR [facility]; Protocol Last Infusion: 10/18/19 10:30 Dose: Infused Documented by: Magnesium Hydroxide (Milk Of Magnesia) 30 ml PO Q4H PRN PRN Reason: Constipation Methylprednisolone Sodium Succinate (Solu-Medrol) 40 mg IV Q8HR [facility] Last Admin: 10/18/19 14:09 Dose: 40 mg Documented by: Morphine Sulfate (Morphine) 2 mg IV Q4H PRN PRN Reason: Pain, Moderate (4-6) Ondansetron HCl (Zofran) 4 mg IV Q8H PRN PRN Reason: Nausea And Vomiting Sodium Chloride (Sodium Chloride Flush Syringe 10 Ml) 10 ml IV BID [facility] Last Admin: 10/18/19 10:30 Dose: 10 ml Documented by: Sodium Chloride (Sodium Chloride Flush Syringe 10 Ml) 10 ml IV PRN PRN PRN Reason: LINE FLUSH Physical Examination - Physical Exam Narrative exam: Physical exam deferred due to PPE conservation strategy. Please refer to primary team's note. - Constitutional Vitals: Vital Signs Temp Pulse Resp BP Pulse Ox 97.8 F 97 H 20 148/79 95 10/18/19 16:07 10/18/19 16:07 10/18/19 16:07 10/18/19 16:07 09/06/20 16:07 Temperature -Last 24 Hours Temperature 97.8 F Temperature 97.7 F Temperature 98.3 F Temperature 98.2 F Results - Labs CBC & Chem 7: 10/18/19 06:56 10/18/19 06:56 Labs: Abnormal lab results 10/18/19 10/18/19 10/18/19 Range/Units 06:56 06:56 06:56 WBC 32.4 H (4.5-11.0) K/mm3 RBC 5.47 H (3.65-5.03) M/mm3 Hgb 15.5 H (11.8-15.2) gm/dl Hct 46.8 H (35.5-45.6) % RDW 16.2 H (13.2-15.2) % Seg Neuts % (Manual) 84.0 H (40.0-70.0) % Lymphocytes % (Manual) 10.0 L (13.4-35.0) % Seg Neutrophils # Man 27.2 H (1.8-7.7) K/mm3 Monocytes # (Manual) 1.6 H (0.0-0.8) K/mm3 Glucose 111 H (75-100) mg/dL Lactate Dehydrogenase 221 H (91-180) units/L C-Reactive Protein 4.50 H (0.00-1.30) mg/dL Assessment and Plan Cultures: Blood culture 10/16/2019 pending A/P: 34-year-old man with medical history admitted to the hospital with asthma exacerbation #Asthma exacerbation: Management per primary and pulmonary. COVID-19 negative. #Leukocytosis: Patient is afebrile, chest x-ray without acute abnormality. Procalcitonin is normal. Likely secondary to IV steroids. Recs: -Stop ceftriaxone and azithromycin. -Management of asthma per primary and pulmonary. -Okay for discharge from infectious disease perspective. Thank you for the consult, we will continue to follow. Jaime Delarosa MD [facility] M: [phone] O: [phone] F: [phone]
[2019-10-18] MEDS: ENOXAPARIN 40 MG/0.4 ML INJ SUB-Q SCH (21:11)
[2019-10-19] MEDS: IPRATROPIUM/ALBUTEROL SULFATE 3 ML AMPUL.NEB IH SCH ×2 (01:45→07:47)
[2019-10-19] MEDS: methylPREDNISolone Sod Succinate 40 MG/1 ML INJ IV SCH (05:17)
[2019-10-19 06:06] LABS: Hematocrit 46.9 % (35.5-45.6); Hemoglobin 15.4 gm/dl (11.8-15.2); Mean Corpuscular HGB Conc 33 % (32-34); Mean Corpuscular Volume 85 fl (84-94); Platelet Count 283 K/mm3 (140-440); Red Cell Distribution Width 16.4 % (13.2-15.2)
[2019-10-19] MEDS: cefTRIAXone/NS 2 GM/100 ML 2 GM/100 ML BAG IV SCH (09:00)
[2019-10-19] MEDS: AZITHROMYCIN 250 MG TAB PO SCH (09:00)
[2019-10-19 11:15] VITALS: BP 140/88
--- NOTE | 2019-10-19 11:28 | Discharge Summary ---
Providers - Providers Date of Admission: 10/17/19 00:56 Date of discharge: 10/19/19 Attending physician: ANSHU MONTES MD 10/17/19 00:43 Consult to Physician [CONS] Routine Comment: Consulting Provider: ARSENIO SCALES Physician Instructions: Reason For Exam: FEVER, LEUCOCYTOSIS.ASTHMA EXAC. R/O COVID 10/18/19 09:00 Consult to Physician [CONS] Stat Comment: Consulting Provider: VETO QUINTANILLA Physician Instructions: Reason For Exam: ASTHMA 10/19/19 09:39 Consult to Case Management [CONS] Routine Services Needed at Discharge: Regulatory Technician Notified:: CM Additional Physician Instructions: Please provide discounted prescription cards, Thanks! [facility] Condition: Stable Pertinent studies: 10/15 CXR showed no acute cardiopulmonary disease Hospital course: This is a 34 year old with asthma, cigarette use (1ppd for 20 years), marijuana use and morbid obesity who presents to the emergency department with complaints of cough addition, wheezing and shortness of breath for 3 days on 10/16. Upon arrival in the emergency room he was found to be in respiratory distress, wheezing and had a fever of about 103 F. Work-up reveals leukocytosis of about 20,000, chest x-ray was unremarkable and he received nebulizer treatments and IV steroids. He was found to have an acute exacerbation of asthma. He currently has been treating his asthma/chronic cough with codeine as he ran out of his medications and is not currently working. He will be discharged with a steroid taper. Please establish care with a PCP and a admitted attorneys outpatient and follow up within 1-2 weeks of discharge. (1) Asthma exacerbation Current Visit: Yes Status: resolved Plan to address problem: - Discharged on a steroid taper (2) Acute respiratory distress Current Visit: Yes Status: Acute Plan to address problem: - follow up with a admitted attorneys (3) Suspected 2019 novel coronavirus infection Current Visit: Yes Status: ruled out - 10/16 COVID PCR negative (4) Leucocytosis Current Visit: Yes Status: Acute Plan to address problem: - Likely reactive to asthma exacerbation and steroid use (5) Tobacco abuse and Marijuana use Current Visit: Yes Status: Chronic Plan to address problem: - Discussed tobacco use cessation and encouraged use of aids as needed - Discussed marijuana use cessation (6) Morbid obesity Current Visit: Yes Status: Chronic Plan to address problem: - Weight loss counseling provided Disposition: DC-01 TO HOME OR SELFCARE Time spent for discharge: 35 Core Measure Documentation - Palliative Care Palliative Care/ Comfort Measures: Not Applicable - Core Measures Any of the following diagnoses?: none Exam - Constitutional Vitals: Temp Pulse Resp BP Pulse Ox 97.6 F 90 24 140/88 94 10/19/19 11:11 10/19/19 11:11 10/19/19 11:11 10/19/19 11:11 10/19/19 11:11 General appearance: Present: no acute distress - EENT Eyes: Present: PERRL, EOM intact ENT: hearing intact, clear oral mucosa - Neck Neck: Present: normal ROM - Respiratory Respiratory effort: normal Respiratory: bilateral: diminished - Cardiovascular Rhythm: regular Heart Sounds: Present: S1 & S2. Absent: systolic murmur, diastolic murmur - Extremities Extremities: no ischemia, pulses intact, pulses symmetrical, No edema, normal temperature, normal color, Full ROM Peripheral Pulses: within normal limits - Abdominal General gastrointestinal: Present: soft, non-tender, non-distended, normal bowel sounds - Integumentary Integumentary: Present: clear, warm, dry - Musculoskeletal Musculoskeletal: strength equal bilaterally - Psychiatric Psychiatric: appropriate mood/affect, cooperative - Neurologic Neurologic: CNII-XII intact, no focal deficits, moves all extremities - Allied Health Allied health notes reviewed: nursing Plan Activity: advance as tolerated Diet: low fat Special Instructions: smoking cessation Additional Instructions: Please follow-up with your primary care physician and admitted attorneys within 1 to 2 weeks of discharge. Please report to the emergency department or contact your primary care physician if you experience worsening symptoms. [facility] LIZ[facility] [Primary Care Provider] - 7 Days MIKHAIL IGLESIAS MD [Staff Physician] - 7 Days Prescriptions: Ipratropium/Albuterol Sulfate [DUONEB *Not for PRN Use*] 1 ampul IH Q6HRT #30 ampul.neb guaiFENesin DM [Guaifenesin Dm Syrup] 10 ml PO Q4H PRN #240 oral.liqd PRN Reason: Cough Prednisone [predniSONE 10 mg (6-Day Pack, 21 Tabs)] 10 mg PO .TAPER #1 tab.ds.pk Albuterol Mdi (or & Nicu Only) [ProAir HFA Inhaler] 2 puff IH QID PRN #8.5 gram PRN Reason: Shortness Of Breath Azithromycin [Zithromax TAB] 500 mg PO QDAY #6 tablet
[2019-10-19] MEDS: guaiFENesin DM 200/20 MG ORAL LIQD 10 ML PO PRN (11:39)
== END 2019-10-19 12:45 | disposition home or self-care (01) | DRG 202 ==
LOC: ED 22:26 → 3A 10-17 00:56 → OBSVTOIN 10-17 00:56
PROVIDERS: ADMIT Internal Medicine Geriatric Medicine; ATTEND Internal Medicine
PROC: 4A033R1 Measurement of Arterial Saturation, Peripheral, Percutaneous Approach (ICD-10-PCS; principal; 2019-10-19)
DX: J45.901 Unspecified asthma with (acute) exacerbation (principal); Z68.41 Body mass index [BMI] 40.0-44.9, adult; F17.200 Nicotine dependence, unspecified, uncomplicated; F12.90 Cannabis use, unspecified, uncomplicated; E66.01 Morbid (severe) obesity due to excess calories; D72.829 Elevated white blood cell count, unspecified; Z79.899 Other long term (current) drug therapy; Z03.818 Encounter for observation for suspected exposure to other biological agents ruled out
CPT/HCPCS: 36415; 36600; 71045; 80048; 80053; 82140; 82728; 82805; 82947; 83520; 83615; 84145; 85007; 85025; 85027; 85379; 85610; 86140; 87040; 94640; 94644; 94760; 96365; 96375; 99406; G0378; J0456; J0696; J1100; J1650; J2920; J3475; J7030; J7050; U0003-CS

== ENCOUNTER 2021-03-06 21:53 | Emergency (ER) | payer SELFPAY ==
[2021-03-06 23:17] VITALS: BP 139/85
[2021-03-07] MEDS ORDERED: ACETAMINOPHEN 500 MG TAB PO STA (00:08)
[2021-03-07] MEDS ORDERED: IBUPROFEN 800 MG TAB PO STA (00:08)
--- NOTE | 2021-03-07 00:15 | Emergency Department Report ---
ED General Adult HPI - General Chief complaint: Extremity Injury, Lower Stated complaint: TOES NUMB Time Seen by Provider: 03/06/21 23:38 Source: patient Mode of arrival: Ambulatory Limitations: No Limitations - History of Present Illness Initial comments: 35-year-old -[place] male patient presents with complaints of right foot tingling and numbness x4 days. He states this started with mild pain in his ankle which is now resolved. He has history of gout, however has not had a flare in 10 years. He denies any other prior medical history including diabetes. He states there is mild pain to the toes and rates it as a 3/10 in severity. He has not tried any OTC medications for his symptoms. No numbness/tingling/weakness in the remaining limbs per patient or headache, dizziness, confusion, or difficulty with speech/ambulation. - Related Data Previous Rx's Medication Instructions Recorded Last Taken Type Albuterol Mdi (or & Nicu Only) 2 puff IH QID PRN #8.5 gram 10/18/19 Unknown Rx [ProAir HFA Inhaler] Azithromycin [Zithromax TAB] 500 mg PO QDAY #6 tablet 10/18/19 Unknown Rx Acetaminophen [Acetaminophen TAB] 650 mg PO Q4H PRN tablet 10/19/19 Unknown Rx Ipratropium/Albuterol Sulfate 1 ampul IH Q6HRT #30 ampul.neb 10/19/19 Unknown Rx [DUONEB *Not for PRN Use*] Prednisone [predniSONE 10 mg 10 mg PO .TAPER #1 tab.ds.pk 10/19/19 Unknown Rx (6-Day Pack, 21 Tabs)] guaiFENesin DM [Guaifenesin Dm 10 ml PO Q4H PRN #240 oral.liqd 10/19/19 Unknown Rx Syrup] Naproxen [EC-Naprosyn] 500 mg PO BID PRN #20 tab 03/07/21 Unknown Rx Allergies Allergy/AdvReac Type Severity Reaction Status Date / Time No Known Drug Allergies Allergy Unknown Verified 03/06/21 23:17 ED Review of Systems ROS: Stated complaint: TOES NUMB Other details as noted in HPI Constitutional: denies: chills, fever Musculoskeletal: denies: joint swelling Skin: denies: lesions, change in color Neurological: paresthesias ED Past Medical Hx - Past Medical History Hx Hypertension: Yes Hx Congestive Heart Failure: No Hx Diabetes: No Hx Asthma: Yes Hx COPD: No Hx Tuberculosis: No Hx HIV: No Additional medical history: Bronchitis. gout - Surgical History Past Surgical History?: No - Social History Smoking Status: Current Every Day Smoker - Medications Home Medications: Home Medications Medication Instructions Recorded Confirmed Last Taken Type Albuterol Mdi (or & Nicu Only) 2 puff IH QID PRN #8.5 gram 10/18/19 Unknown Rx [ProAir HFA Inhaler] Azithromycin [Zithromax TAB] 500 mg PO QDAY #6 tablet 10/18/19 Unknown Rx Acetaminophen [Acetaminophen TAB] 650 mg PO Q4H PRN tablet 10/19/19 Unknown Rx Ipratropium/Albuterol Sulfate 1 ampul IH Q6HRT #30 ampul.neb 10/19/19 Unknown Rx [DUONEB *Not for PRN Use*] Prednisone [predniSONE 10 mg 10 mg PO .TAPER #1 tab.ds.pk 10/19/19 Unknown Rx (6-Day Pack, 21 Tabs)] guaiFENesin DM [Guaifenesin Dm 10 ml PO Q4H PRN #240 oral.liqd 10/19/19 Unknown Rx Syrup] Naproxen [EC-Naprosyn] 500 mg PO BID PRN #20 tab 03/07/21 Unknown Rx ED Physical Exam - General Limitations: No Limitations General appearance: alert, in no apparent distress, obese - Head Head exam: Present: atraumatic, normocephalic - Eye Eye exam: Present: normal appearance. Absent: scleral icterus - Respiratory Respiratory exam: Absent: respiratory distress - Cardiovascular Cardiovascular Exam: Present: regular rate - Extremities Exam Extremities exam: Present: full ROM - Expanded Lower Extremity Exam Right Ankle exam: Present: normal inspection Foot/Toe exam: Present: normal inspection Neuro vascular tendon exam: Present: no vascular compromise. Absent: pulse deficit, motor deficit, sensory deficit - Neurological Exam Neurological exam: Present: alert, oriented X3 - Psychiatric Psychiatric exam: Present: normal affect, normal mood - Skin Skin exam: Present: warm, dry, intact, normal color. Absent: rash ED Course Vital Signs 03/06/21 23:14 Temperature 98.5 F Pulse Rate 75 Respiratory 21 Rate Blood Pressure 139/85 O2 Sat by Pulse 98 Oximetry ED Medical Decision Making - Medical Decision Making 35-year-old -[place] male patient presents with complaints of right foot tingling and numbness x4 days. He states this started with mild pain in his ankle which is now resolved. He has history of gout, however has not had a flare in 10 years. He denies any other prior medical history including diabetes. He states there is mild pain to the toes and rates it as a 3/10 in severity. He has not tried any OTC medications for his symptoms. No numbness/tingling/weakness in the remaining limbs per patient or headache, dizziness, confusion, or difficulty with speech/ambulation. POC glucose is 104. Neurologic exam is normal. Recommend follow-up with primary care for further evaluation. He is otherwise well-appearing, his vitals are within normal limits, he is stable for discharge home. Discussed in detail signs and symptoms that should prompt immediate return to the emergency department with patient verbalized understand Critical care attestation.: If time is entered above; I have spent that time in minutes in the direct care of this critically ill patient, excluding procedure time. ED Disposition Clinical Impression: Paresthesia of foot Disposition: 01 HOME / SELF CARE / HOMELESS Is pt being admited?: No Condition: Stable Instructions: Paresthesia, [id number] Prescriptions: Naproxen [EC-Naprosyn] 500 mg PO BID PRN #20 tab PRN Reason: pain Referrals: [facility] [Provider Group] - 3-5 Days
== END 2021-03-07 01:10 | disposition home or self-care (01) ==
LOC: ED 21:53
DX: R20.2 Paresthesia of skin (principal); I10 Essential (primary) hypertension; J45.909 Unspecified asthma, uncomplicated; F17.200 Nicotine dependence, unspecified, uncomplicated
CPT/HCPCS: 82962; 99282